=== PATIENT | female | born 1970 | race African-American/Black ===

== ENCOUNTER 2016-03-20 11:31 | Emergency (ER) | payer OTHER ==
[~2016-03-20] VITALS: Ht 157.5 cm; Wt 106.6 kg
[~2016-03-20 11:31] MED LIST: HYDROCODONE/ACE1 TA1 PO
--- NOTE | 2016-03-20 13:27 | ED GENERAL ADULT ---
History of Present Illness General Chief Complaint: Upper Respiratory Sx/Fever Stated Complaint: SINUS CONGESTION DIZZY X 1WEEK Source: patient, old records Exam Limitations: no limitations Vital Signs & Intake/Output Vital Signs & Intake/Output Vital Signs Date Time Temp Pulse Resp B/P Pulse O2 O2 Flow FiO2 Ox Delivery Rate 03/20 1527 98.9 87 18 124/84 97 Room Air 03/20 1332 85 138/89 03/20 1331 95 128/89 03/20 1153 98.1 93 18 134/85 96 Room Air Allergies Coded Allergies: Penicillins (Severe, UNKNOWN 03/20/16) Reconcile Medications HYDROCODONE/ACETAMINOPHEN (Hydrocodon-Acetaminophen 5-325) 1 EACH TABLET 1 TAB PO Q8P PRN PAIN Triage Note: PT TO ER C/C INTERMITTENT DIZZINES WORSE WITH STANDING X 1 WEEK. DENIES BARRAZA, SYNCOPE, CHEST PAIN OR SOB. DENIES FEVERS. HX NIDDM Triage Nurses Notes Reviewed? yes HPI: Patient is a 45-year-old female presents complaining of intermittent dizziness 1 week. Patient reports the sensation is a lightheadedness where at times she feels like she is going to pass out. Symptoms occur when she is changing positions and has also occurred when the patient was in the shower. Lightheadedness is currently 0 out of 10. Patient reports currently she has a feeling of generalized fatigue. Pain 0 out of 10. Patient was previously on Januvia and insulin for her diabetes reports that these medications are too expensive and is currently only taking metformin. Patient does not monitor her blood sugar regularly at home. Patient denies headache, change in vision, chest pain, palpitations, abdominal pain, nausea, vomiting, tinnitus, syncope. (KILEY ZAIDI) Past History Travel History Traveled to [place] past 21 day No Medical History Any Pertinent Medical History? see below for history Cardiovascular: hypertension, hyperlipidemia Endocrine: diabetes Surgical History Surgical History: non-contributory Psychosocial History What is your primary language Romansh Tobacco Use: Never used ETOH Use: occasional use Family History Hx Contributory? No (KILEY ZAIDI) Review of Systems Review of Systems Constitutional: Reports: malaise. Denies: chills, fever. EENTM: Reports: no symptoms. Denies: ear pain, nasal congestion. Respiratory: Denies: cough, short of breath. Cardiovascular: Denies: chest pain, palpitations, peripheral edema. GI: Denies: abdominal pain, nausea, vomiting. Musculoskeletal: Reports: no symptoms. Skin: Reports: no symptoms. Neurological/Psychological: Denies: headache, numbness. Hematologic/Endocrine: Denies: bruising, bleeding. Immunologic/Allergic: Denies: splenectomy. (KILEY ZAIDI) Physical Exam Physical Exam General Appearance: alert, awake, obese Head: atraumatic, normal appearance Eyes: Bilateral: normal appearance, PERRL, EOMI, other (no nystagmus). Ears, Nose, Throat: normal ENT inspection, hearing grossly normal Neck: normal inspection, supple, full range of motion, no appreciable carotid bruit Respiratory: normal breath sounds, chest non-tender, no respiratory distress, lungs clear Cardiovascular: regular rate/rhythm (no appreciable murmur) Peripheral Pulses: 2+ radial (R), 2+ radial (L) Gastrointestinal: soft, non-tender Back: normal inspection, normal range of motion Extremities: normal inspection, normal capillary refill, normal range of motion, no edema Neurologic/Psych: no motor/sensory deficits, awake, alert, oriented x 3, normal gait, normal mood/affect, carton liner II-XII nml as tested Skin: intact, normal color, warm/dry Lymphatic: no anterior cervical keaton Core Measures ACS in differential dx? Yes ASA ordered for poss ACS? No-ACS ruled out CVA/TIA Diagnosis: No Severe Sepsis Present: No Septic Shock Present: No (KILEY ZAIDI) Progress Differential Diagnoses I considered the following diagnoses in my evaluation of the patient: Vertigo( peripheral versus central), orthostatic hypotension, arrhythmia, electrolyte abnormality, diabetic emergency, dehydration, ACS Plan of Care: Orders Procedure Date/time Status MISTAKE 03/20 1327 Active TROPONIN LEVEL 03/20 1327 Complete COMPREHENSIVE METABOLIC PANEL 03/20 1327 Complete CBC WITHOUT DIFFERENTIAL 03/20 1327 Complete EKG 03/20 1154 Active Laboratory Tests 03/20/16 1335: Anion Gap 10, Estimated GFR > 60, BUN/Creatinine Ratio 20.0, Glucose 332 H, Calcium 9.5, Total Bilirubin 0.4, AST 17, ALT 27, Alkaline Phosphatase 118, Troponin I < 0.01, Total Protein 6.8, Albumin 3.8, Globulin 3.0, Albumin/ Globulin Ratio 1.3, CBC w Diff NO MAN DIFF REQ, RBC 4.89, MCV 83.5, MCH 27.0, RDW 13.0, MPV 7.4, Gran % 57.4, Lymphocytes % 33.5, Monocytes % 7.8, Eosinophils % 0.6, Basophils % 0.7, Absolute Granulocytes 4.2, Absolute Lymphocytes 2.5, Absolute Monocytes 0.6, Absolute Eosinophils 0, Absolute Basophils 0.1, PUBS MCHC 32.4 L Patient orthostatic negative. 1420: Results of labs discussed with patient. Patient resting comfortably. No acute neurologic abnormalities on exam. No acute changes on ekg. Heart and lung exam unremarkable. Insulin ordered. Discussed with patient importance of close outpatient follow up. 1520: Blood sugar improving after subcutaneous insulin. Anion gap and bicarb normal. Appears stable for discharge with close outpatient follow up. (KILEY ZAIDI) Initial ED EKG: normal sinus rhythm at 87 beats per minute normal axis, normal intervals, no acute changes compared to previous EKG from 2008 (KILEY ZAIDI) Departure Departure Disposition: HOME OR SELF CARE Condition: Stable Clinical Impression Primary Impression: Hyperglycemia Referrals: GIULIANA COON MD (PCP/Family) Additional Instructions: Follow up with Dr. Coon this week for recheck and further evaluation. Call tomorrow morning for appointment. Check your blood sugar daily, and keep a log of your blood sugar to bring with you to your doctor. Return to the ER if chest pain, heart palpitations, difficulty breathing, headache, numbness, weakness or worsening of symptoms. Departure Forms: Customer Survey General Discharge Information (KILEY ZAIDI) PA/CORPORATE BUYER Co-Sign Statement Statement: ED Attending supervision documentation- [] I saw and evaluated the patient. I have also reviewed all the pertinent lab results and diagnostic results. I agree with the findings and the plan of care as documented in the PA's/CORPORATE BUYER's documentation. x I have reviewed the ED Record and agree with the PA's/CORPORATE BUYER's documentation. [] Additions or exceptions (if any) to the PAs/CORPORATE BUYER's note and plan are summarized below: [] (LANIE SANDHU,AGUSTO) Critical Care Note Critical Care Note Critical Care Time: non-applicable (KILEY ZAIDI)
[2016-03-20 13:58] LABS: ABSOLUTE BASOPHIL COUNT 0.1 /CUMM (0.0-0.2); ABSOLUTE EOSINOPHIL COUNT 0 /CUMM (0.0-0.7); ABSOLUTE GRANULOCYTE CT 4.2 /CUMM (1.4-6.5); ABSOLUTE LYMPH COUNT 2.5 /CUMM (1.2-3.4); ABSOLUTE MONOCYTE COUNT 0.6 /CUMM (0.10-0.60); BASOPHIL % 0.7 % (0.0-2.0); EOSINOPHIL % 0.6 % (0-5); GRANULOCYTE % 57.4 % (42.2-75.2); HEMATOCRIT 40.8 % (37-47); MEAN CORPUSCULAR HGB CONC 32.4 G/DL (33.0-37.0); MEAN CORPUSCULAR VOLUME 83.5 FL (81.0-99.0); MEAN PLATELET VOLUME 7.4 FL (7.4-10.4); PLATELET COUNT 360 /CUMM (130-400); RED BLOOD CELL CT 4.89 /CUMM (4.20-5.40); WHITE BLOOD CELL COUNT 7.3 /CUMM (4.8-10.8)
[2016-03-20 15:27] VITALS: BP 124/84
== END 2016-03-20 15:30 ==
LOC: ERH 11:31
PROVIDERS: Physician Assistant
DX: E11.65 Type 2 diabetes mellitus with hyperglycemia (principal)
CPT/HCPCS: 93005; 93010; 96372; J1815